=== PATIENT | male | born 1960 | race African-American/Black ===

== ENCOUNTER 2023-07-24 06:31 | Emergency (ER) | payer BC | END 2023-07-24 07:11 | disposition home or self-care (01) | LOC: MW.ED 06:31 | DX: H66.92 Otitis media, unspecified, left ear (principal); H60.92 Unspecified otitis externa, left ear; E78.00 Pure hypercholesterolemia, unspecified; I10 Essential (primary) hypertension; Z79.899 Other long term (current) drug therapy | CPT/HCPCS: 99282; 99283 ==